=== PATIENT | male | born 1970 | race Caucasian/White ===

== ENCOUNTER 2016-06-12 19:05 | Observation (INO) | payer BC, OTHER ==
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
[2016-06-12] MEDS ORDERED: Iopamidol 612 MG/ML 150 ML Bottle IVPUSH ONE (19:38)
[2016-06-12] MEDS ORDERED: Sodium Chloride 0.9% 10 ML Syringe FLUSH ONE (19:38)
[2016-06-12] MEDS ORDERED: HYDROmorphone 1 MG/ML Syringe IVPUSH ONE (19:47)
[2016-06-12] MEDS ORDERED: Ondansetron 4 MG/2 ML SDV IVPUSH PRN (22:22)
[2016-06-12] MEDS: HYDROmorphone 0.5 MG/0.5 ML Syringe IVPUSH PRN (22:30)
[2016-06-13] MEDS: HYDROmorphone 0.5 MG/0.5 ML Syringe IVPUSH PRN ×2 (00:53→05:54)
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
[2016-06-13] MEDS ORDERED: Ketorolac 60 MG/2 ML SDV IM ONE (09:14)
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
--- NOTE | 2016-06-13 09:36 | CR ---
Chest: 2 views of the chest were obtained. Heart size and mediastinum are normal. Minimal increased density is noted within both lung bases which is felt compatible with atelectasis. Nodule identified on recent CT study which is is felt to be present behind the left heart. As mentioned on CT study, this has a differential of a solitary pulmonary nodule, please CT report for management possibilities. Left-sided rib fractures are seen which were noted on CT exam. No discrete pneumothorax seen on plain film exam. Impression: 1. Atelectasis within both lung bases. 2. Stable left-sided rib fractures. 3. Nodule behind the left heart, please see CT report for management possibilities. 4. Nothing appreciated to indicate definite pneumothorax on this study. Diagnostic code #3
[2016-06-13 15:03] VITALS: BP 120/72
[2016-06-13] MEDS ORDERED: metFORMIN 500 MG Tab PO SCH (17:00)
--- NOTE | 2016-06-13 17:25 | CR ---
Right tibia and fibula: Two views of the right tibia and fibula were obtained. Comparison: No previous study. No fracture or other bony abnormality is seen. Impression: 1. No abnormality is identified on two-view right tibia and fibula study. Diagnostic code #1
--- NOTE | 2016-06-13 17:25 | CT ---
CT chest Technique: Multiple axial sections were obtained through the chest. Intravenous contrast was utilized. Comparison: No previous chest imaging is available. Findings: Mediastinum and hilar regions appear unremarkable. No pericardial thickening is seen. Soft tissue air is seen within the left posterior chest wall which is in area of fractures within the seventh, eighth and ninth rib fractures. Fracture also noted within the ninth rib near the costovertebral junction. Fractures noted within the left transverse process of T7, T8 and T9. Fractures are seen at the costovertebral junction within the left seventh and eighth ribs. No additional fracture is appreciated. Slight atelectasis seen within the left lung base. Very minimal left basilar pneumothorax is seen. Nodule identified within the superior segment of the left lower lung. Nodule measures approximately 1.3 cm in size. No calcifications are seen within this nodule. Lungs otherwise are clear. Reconstructed sagittal views shows no compression fractures within the thoracic spine. Sternum appears to be intact. Impression: 1. Fractures within the posterior seventh, eighth and ninth ribs on the left side. These fractures occur posteriorly as well as additional fractures within the seventh and eighth rib at the costovertebral junction. Nondisplaced fractures are seen within the transverse process of T7, T8 and T9. 2. Slight atelectasis within the left lung base with minimal left basilar pneumothorax as well as soft tissue air within the left posterior chest wall. 3. 1.3 cm nodule within the superior segment of the left lower lung. This has a differential of a solitary pulmonary nodule. Aggressive evaluation would be biopsy. Alternatively, if patient is not a smoker, follow-up study could be considered in 6 months to further evaluate. 4. No additional abnormality is identified. Diagnostic code #3 I agree with preliminary report issued by [facility] (report finalized on 06/12/16, 9:23 PM Central Time) CT abdomen and pelvis Technique: Multiple axial sections were obtained from above the dome of the diaphragm inferiorly through the pubic symphysis. Intravenous contrast was utilized. No oral contrast has been given. Findings: Liver shows fatty infiltration. No focal abnormality is seen within the liver. Gallbladder shows no calcified gallstones. Spleen appears within normal limits. Adrenal glands show no nodule. Kidneys show symmetric contrast enhancement without hydronephrosis or mass. Pancreas is within normal limits. Aorta shows no aneurysmal dilatation. No retroperitoneal adenopathy or mesenteric abnormalities are seen. No pelvic mass or adenopathy is seen. No free fluid or inflammatory change is seen. Delayed images show contrast within the distal ureters and within the bladder. No bowel dilatation is seen. No inflammatory change or free fluid is seen. Bone window settings were reviewed which shows disc space narrowing at L5-S1 with vacuum phenomena. Slight posterior spurring noted at L3-L4 and L4-L5 as well as L5-S1. Nothing acute is appreciated within the lumbar spine or within the pelvis. Impression: 1. Fatty infiltration within the liver. 2. Degenerative change within the lumbar spine. 3. Nothing acute is identified on CT study of the abdomen and pelvis. Diagnostic code #2 I agree with preliminary report issued by [employer] (report finalized on 06/12/16, 9:23 PM Central Time)
[2016-06-13] MEDS ORDERED: Mirtazapine 30 MG Tab PO SCH (21:00)
[2016-06-14] MEDS ORDERED: Venlafaxine 75 MG Cap.ER PO SCH (09:00)
[2016-06-14] MEDS ORDERED: Glimepiride 4 MG Tab PO SCH (09:00)
[2016-06-14] MEDS ORDERED: Lisinopril 20 MG Tab PO SCH (09:00)
--- NOTE | 2016-06-21 14:35 | PCM.DCSUM1 ---
Discharge Summary - Hospital Course Free Text/Narrative:: The patient was admitted for observation given. The magnitude of the mechanism of injury. He had expected pain, any fracture areas, which was managed with analgesics. He was stable overnight. He satisfied discharge criteria the next morning, and had normal. Labs, so. He was discharged with outpatient management , and followup. - Discharge Data Discharge Date: 06/13/16 Discharge Disposition: Home, Self-Care 01 Condition: Good - Discharge Diagnosis/Problem(s) (1) Skin abrasion SNOMED Code(s): 135973429 ICD Code: T14.8 - OTHER INJURY OF UNSPECIFIED BODY REGION Status: Acute Priority: Medium (2) Fracture of rib SNOMED Code(s): 24071673 ICD Code: S22.39XA - FRACTURE OF ONE RIB, UNSP SIDE, INIT FOR CLOS FX Status: Acute Priority: Medium Qualifiers: Encounter type: initial encounter Rib fracture type: multiple ribs Fracture type: closed Laterality: left Qualified Code(s): S22.42XA - Multiple fractures of ribs, left side, initial encounter for closed fracture (3) Fracture of thoracic transverse process SNOMED Code(s): 890138254 ICD Code: S22.009A - UNSP FRACTURE OF UNSP THORACIC VERTEBRA, INIT FOR CLOS FX Status: Acute Priority: Medium Qualifiers: Encounter type: initial encounter Fracture type: closed Qualified Code(s) : S22.009A - Unspecified fracture of unspecified thoracic vertebra, initial encounter for closed fracture (4) Hemopneumothorax on left SNOMED Code(s): 51121867 ICD Code: J94.2 - HEMOTHORAX Status: Acute Priority: Medium - Patient Summary/Data Operative Procedure(s) Performed: None Complications: None Labs Pending at D/C: None Recommended Follow-up Testing/Procedures: Approximately one week in my office for a chest x-ray. Planned Operative Procedure(s) after DC: None Hospital Course: See above. - Patient Instructions Diet: Usual Diet as Tolerated Activity: As Tolerated, Rest and Relax Today Driving: May Drive Today Showering/Bathing: May Shower Notify Provider of: Increased Pain Other/Special Instructions: Stool softener for constipation, associated with Percocet. Call my office for increasing shortness of breath, or persistent cough. Also call if there is blood in the urine. - Discharge Plan Prescriptions/Med Rec: Cyclobenzaprine [Flexeril] 10 mg PO Q6H PRN #48 tablet PRN Reason: Spasms oxyCODONE HCl/Acetaminophen [Percocet 5-325 mg Tablet] 1 - 2 each PO Q6HR PRN # 36 tablet PRN Reason: Pain Home Medications: Home Meds Glimepiride [Amaryl] 4 mg PO DAILY 06/12/16 [History] Lisinopril [Zestril] 20 mg PO DAILY 06/12/16 [History] Mirtazapine [Remeron] 30 mg PO BEDTIME 06/12/16 [History] metFORMIN HCl [Metformin HCl] 1,000 mg PO BID 06/12/16 [History] Cyclobenzaprine [Flexeril] 10 mg PO Q6H PRN #48 tablet 06/13/16 [Rx] Venlafaxine [Effexor] 225 mg PO DAILY 06/13/16 [History] oxyCODONE HCl/Acetaminophen [Percocet 5-325 mg Tablet] 1 - 2 each PO Q6HR PRN # 36 tablet 06/13/16 [Rx] Patient Handouts: Rib Fracture, [id number] Forms: ED Department Discharge Referrals: Juan Ruiz MD [Primary Care Provider] - (Please call [facility] at [phone] to make own follow-up appointment with Dr. Ruiz in one week.) Suresh Esquivel MD [Physician] - 06/17/16 (Clinic visit and Chest x-ray in about a week. Please call on Tuesday to make a follow-up appointment with Dr. Esquivel by calling [phone].) - Discharge Summary/Plan Comment DC Time >30 min.: No Discharge Summary/Plan Comment: imp: Ready for discharge plan: Discharge home. - Patient Data Vitals - Most Recent: Last Vital Signs Temp 36.6 C 06/13/16 09:00 Pulse 87 06/13/16 09:00 Resp 18 06/13/16 09:00 BP 120/72 06/13/16 09:00 Pulse Ox 95 06/13/16 09:00 Weight - Most Recent: 107.002 kg Med Orders - Current: Current Medications Discontinued Medications Glimepiride (Glimepiride) 4 mg PO DAILY MULUGETA Hydromorphone HCl (Dilaudid) 1 mg IVPUSH ONETIME ONE Stop: 06/12/16 19:48 Last Admin: 06/12/16 19:55 Dose: 1 mg Hydromorphone HCl (Dilaudid) 0.5 mg IVPUSH Q2H PRN PRN Reason: Pain Last Admin: 06/13/16 05:54 Dose: 0.5 mg Iopamidol (Isovue-300 (61%)) 150 ml IVPUSH ONETIME ONE Stop: 06/12/16 19:39 Last Admin: 06/12/16 19:53 Dose: 125 ml Ketorolac Tromethamine (Toradol) 60 mg IM ONETIME ONE Stop: 06/13/16 09:15 Last Admin: 06/13/16 09:37 Dose: 60 mg Lisinopril (Prinivil) 20 mg PO DAILY MULUGETA Metformin HCl (Glucophage) 1,000 mg PO BIDMEALS MULUGETA Mirtazapine (Remeron) 30 mg PO BEDTIME MULUGETA Ondansetron HCl (Zofran) 4 mg IVPUSH Q6H PRN PRN Reason: Nausea Sodium Chloride (Saline Flush) 10 ml FLUSH ONETIME ONE Stop: 06/12/16 19:39 Last Admin: 06/12/16 19:53 Dose: 10 ml Venlafaxine HCl (Effexor Xr) 225 mg PO DAILY MULUGETA *Q Meaningful Use (DIS) - VTE *Q VTE Criteria *Q: - Stroke *Q Stroke Criteria *Q: - AMI *Q AMI Criteria *Q:
== END 2016-06-13 10:05 | disposition home or self-care (01) ==
LOC: JD.ED 19:05 → JD.MS 21:51
PROVIDERS: ADMIT Surgery; ATTEND Surgery
DX: S22.009A Unspecified fracture of unspecified thoracic vertebra, initial encounter for closed fracture (principal); S27.2XXA Traumatic hemopneumothorax, initial encounter; M79.669 Pain in unspecified lower leg; T14.8 Other injury of unspecified body region; V39.9XXA Occupant (driver) (passenger) of three-wheeled motor vehicle injured in unspecified traffic accident, initial encounter; Y92.488 Other paved roadways as the place of occurrence of the external cause; I10 Essential (primary) hypertension; F41.8 Other specified anxiety disorders; E11.9 Type 2 diabetes mellitus without complications; S22.42XA Multiple fractures of ribs, left side, initial encounter for closed fracture; Z79.84 Long term (current) use of oral hypoglycemic drugs
CPT/HCPCS: 36415; 71020; 71260; 73590; 74177; 80053; 81001; 85025; 96374; 99285; G0480; J1170; J1885; J7050; Q9967; 96372; 96376; 99284; G0378